=== PATIENT | male | born 1945 | race Hispanic/Latino ===

== ENCOUNTER → 2019-05-28 | Outpatient (CLI) | payer OTHER | END | disposition home or self-care (01) | LOC: SHCH 08:52 | PROVIDERS: ATTEND Internal Medicine Cardiovascular Disease | DX: R01.1 Cardiac murmur, unspecified (principal) | CPT/HCPCS: 93306 ==

== ENCOUNTER → 2019-12-14 | Outpatient (CLI) | payer OTHER ==
[~2019-12-14] MED LIST: IOHEXOL-350 50ML VIAL IV ONE
== END | disposition home or self-care (01) ==
LOC: RAH 10:29
PROVIDERS: ATTEND Internal Medicine Cardiovascular Disease
DX: J98.6 Disorders of diaphragm (principal); M47.814 Spondylosis without myelopathy or radiculopathy, thoracic region; I70.90 Unspecified atherosclerosis
CPT/HCPCS: 71270; Q9967

== ENCOUNTER → 2020-01-28 | Outpatient (CLI) | payer OTHER | END | disposition home or self-care (01) | LOC: RAH 10:31 | PROVIDERS: ATTEND Physical Medicine & Rehabilitation | DX: M47.816 Spondylosis without myelopathy or radiculopathy, lumbar region (principal); M48.062 Spinal stenosis, lumbar region with neurogenic claudication; M51.26 Other intervertebral disc displacement, lumbar region; M41.86 Other forms of scoliosis, lumbar region | CPT/HCPCS: 72148 ==

== ENCOUNTER → 2020-10-06 | Outpatient (CLI) | payer OTHER ==
[~2020-10-06] MED LIST changes: +IOHEXOL 350 MG/ML 100ML INFUS..BTL IV ONE
== END | disposition home or self-care (01) ==
LOC: RAH 07:47
PROVIDERS: ATTEND Internal Medicine Cardiovascular Disease
DX: I70.0 Atherosclerosis of aorta (principal); I70.293 Other atherosclerosis of native arteries of extremities, bilateral legs; I77.1 Stricture of artery
CPT/HCPCS: 75635; Q9967 ×2

== ENCOUNTER → 2021-06-26 | Outpatient (CLI) | payer MEDICARE ==
[~2021-06-26] VITALS: Ht 172.7 cm; Wt 70.8 kg
[~2021-06-26] MED LIST changes: -IOHEXOL 350 MG/ML 100ML INFUS..BTL IV ONE; -IOHEXOL-350 50ML VIAL IV ONE; +REGADENOSON 0.4 MG/5 ML PF SYG IVP SCH
== END | disposition home or self-care (01) ==
LOC: SHCH 08:12
PROVIDERS: ATTEND Internal Medicine Cardiovascular Disease
DX: R07.9 Chest pain, unspecified (principal)
CPT/HCPCS: 78452; 93017; A9500 ×2; J2785; 96374

== ENCOUNTER → 2021-10-01 | Outpatient (CLI) | payer MEDICARE | END | disposition home or self-care (01) | LOC: SHCH 07:31 | PROVIDERS: ATTEND Internal Medicine Cardiovascular Disease | DX: I08.0 Rheumatic disorders of both mitral and aortic valves (principal); I11.0 Hypertensive heart disease with heart failure; I50.21 Acute systolic (congestive) heart failure; I25.10 Atherosclerotic heart disease of native coronary artery without angina pectoris; I73.9 Peripheral vascular disease, unspecified; E11.9 Type 2 diabetes mellitus without complications; E03.9 Hypothyroidism, unspecified | CPT/HCPCS: 93306; 93975 ==

== ENCOUNTER → 2021-12-21 | Outpatient (CLI) | payer MEDICARE | END | disposition home or self-care (01) | LOC: RAH 13:13 | PROVIDERS: ATTEND Internal Medicine Cardiovascular Disease | DX: I08.0 Rheumatic disorders of both mitral and aortic valves (principal); I11.9 Hypertensive heart disease without heart failure; E11.9 Type 2 diabetes mellitus without complications; R53.81 Other malaise | CPT/HCPCS: 93306 ==

== ENCOUNTER → 2022-04-06 | Outpatient (CLI) | payer OTHER | END | disposition home or self-care (01) | LOC: SHCH 07:56 | PROVIDERS: ATTEND Internal Medicine Cardiovascular Disease | DX: I08.0 Rheumatic disorders of both mitral and aortic valves (principal); I11.9 Hypertensive heart disease without heart failure; E11.9 Type 2 diabetes mellitus without complications; E78.5 Hyperlipidemia, unspecified; Z95.1 Presence of aortocoronary bypass graft | CPT/HCPCS: 93306 ==

== ENCOUNTER → 2023-05-27 | Outpatient (CLI) | payer OTHER ==
[2023-05-27 15:25] LABS: BASOPHILS # (AUTO) 0.03 K/uL (0.00-0.20); BASOPHILS % (AUTO) 0.5 % (0.0-5.0); EOSINOPHILS % (AUTO) 1.7 % (0.0-8.0); IMMATURE GRANULOCYTE ABSOLUTE 0.01 K/uL (0-1); LYMPHOCYTES # (AUTO) 1.5 K/uL (1.0-4.8); MEAN CORPUSCULAR HEMOGLOBIN 33.3 pg (27.0-33.0); MEAN CORPUSCULAR HGB CONC 33.5 g/dL (32.0-36.0); MEAN CORPUSCULAR VOLUME 99.5 fL (79-99); MONOCYTES # (AUTO) 0.5 K/uL (0.1-1.0); MONOCYTES % (AUTO) 8.9 % (3.0-13.0); NEUTROPHILS # (AUTO) 3.8 K/uL (1.8-7.7); NEUTROPHILS % (AUTO) 63.7 % (40.0-77.0); PLATELET COUNT (AUTO) 159 K/uL (130-400); RED BLOOD CELL COUNT(AUTO) 3.72 MIL/uL (4.50-6.20)
[2023-05-27 16:26] LABS: ALBUMIN 4.2 g/dL (3.5-5.0); BILIRUBIN,TOTAL 0.6 mg/dL (0.2-1.0); CREATININE 1.1 mg/dL (0.5-1.5); POTASSIUM 3.5 mmol/L (3.5-5.1); TOTAL PROTEIN, SERUM 8.1 g/dL (6.0-8.3)
== END | disposition home or self-care (01) ==
LOC: LAB 11:37
PROVIDERS: ATTEND Internal Medicine Cardiovascular Disease
DX: I10 Essential (primary) hypertension (principal); I25.10 Atherosclerotic heart disease of native coronary artery without angina pectoris; E78.5 Hyperlipidemia, unspecified
CPT/HCPCS: 36415; 80053; 83880; 85025

== ENCOUNTER → 2023-07-08 | Outpatient (CLI) | payer OTHER | END | disposition home or self-care (01) | LOC: SHCH 07:58 | PROVIDERS: ATTEND Internal Medicine Cardiovascular Disease | DX: I08.0 Rheumatic disorders of both mitral and aortic valves (principal); E11.9 Type 2 diabetes mellitus without complications; I10 Essential (primary) hypertension; E78.5 Hyperlipidemia, unspecified | CPT/HCPCS: 93306 ==

== ENCOUNTER → 2023-07-15 | Outpatient (CLI) | payer OTHER ==
[2023-07-15] MEDS: REGADENOSON 0.4 MG/5 ML PF SYG IVP ONE (15:06)
== END | disposition home or self-care (01) ==
LOC: SHCH 07:34
PROVIDERS: ATTEND Internal Medicine Cardiovascular Disease
DX: I20.9 Angina pectoris, unspecified (principal)
CPT/HCPCS: 78452; 96374; 93017; J2785; A9500 ×2

== ENCOUNTER → 2023-10-12 | Outpatient (CLI) | payer OTHER ==
[2023-10-12 12:24] LABS: CREATININE 1.4 mg/dL (0.5-1.3); POTASSIUM 4.2 mmol/L (3.5-5.1)
== END | disposition home or self-care (01) ==
LOC: LAB 08:38
PROVIDERS: ATTEND Internal Medicine Cardiovascular Disease
DX: I10 Essential (primary) hypertension (principal)
CPT/HCPCS: 36415; 80048

== ENCOUNTER 2023-12-02 12:55 | Observation (INO) | payer OTHER ==
[~2023-12-02] VITALS: Ht 172.7 cm; Wt 61.7 kg
[~2023-12-02 12:55] MED LIST changes: +AMLO-257 PO; +ASCO500T10 PO; +ASPI-1443 PO; +ATOR20TA65 PO; +CHOLECALCIFEROL PO; +CLON0.1T PO; +CLOP75TA32 PO; +CYAN10007 IJ; +HYDR-3421 PO; +HYDR25TA67 PO; +ISOS60TA77 PO; +LEVO100T4 PO; +LEVO5TAB13 PO; +MIRT-22 PO; +OXYB5TAB20 PO; +PANT40TA54 PO; +RANO500T6 PO; -REGADENOSON 0.4 MG/5 ML PF SYG IVP SCH; +TELM40TA8 PO
[2023-12-02] MEDS ORDERED: NITROGLYCERIN 0.4 MG SL TAB SL PRN (14:00)
[2023-12-02 14:16] LABS: BASOPHILS # (AUTO) 0.02 K/uL (0.00-0.20); BASOPHILS % (AUTO) 0.5 % (0.0-5.0); EOSINOPHILS # (AUTO) 0.19 K/uL (0.00-0.70); EOSINOPHILS % (AUTO) 4.5 % (0.0-8.0); HEMATOCRIT 34.4 % (42-54); IMMATURE GRANULOCYTE ABSOLUTE 0.01 K/uL (0-1); LYMPHOCYTES # (AUTO) 1.1 K/uL (1.0-4.8); LYMPHOCYTES % (AUTO) 26.6 % (21.0-51.0); MEAN CORPUSCULAR HEMOGLOBIN 32.6 pg (27.0-33.0); MEAN CORPUSCULAR HGB CONC 33.1 g/dL (32.0-36.0); MEAN CORPUSCULAR VOLUME 98.3 fL (79-99); MONOCYTES # (AUTO) 0.4 K/uL (0.1-1.0); MONOCYTES % (AUTO) 8.7 % (3.0-13.0); NEUTROPHILS # (AUTO) 2.5 K/uL (1.8-7.7); NEUTROPHILS % (AUTO) 59.5 % (40.0-77.0); PLATELET COUNT (AUTO) 181 K/uL (130-400); RED CELL DISTRIBUTION WIDTH 14.2 % (11.0-15.5); WHITE BLOOD COUNT (AUTO) 4.3 K/uL (4.8-10.8)
[2023-12-02 14:22] LABS: INR 1.1 (0.85-1.15); PROTHROMBIN TIME 11.8 SEC (9.6-11.6)
[2023-12-02 14:23] LABS: PARTIAL THROMBOPLASTIN TIME 26.1 SEC (26.3-35.5)
[2023-12-02 14:59] LABS: CREATININE 1.5 mg/dL (0.5-1.3); POTASSIUM 3.8 mmol/L (3.5-5.1)
[2023-12-02 15:04] LABS: ALBUMIN 3.2 g/dL (3.5-5.0); BILIRUBIN,TOTAL 0.7 mg/dL (0.2-1.0); TOTAL PROTEIN, SERUM 6.8 g/dL (6.0-8.3)
[2023-12-02] MEDS ORDERED: ONDANSETRON 4MG INJ IVP PRN (16:00)
[2023-12-02] MEDS ORDERED: morPHINE 2 MG SYG IVP PRN (16:00)
[2023-12-02] MEDS ORDERED: acetaMINOPHEN 325 MG TAB PO PRN ×2 (16:00)
[2023-12-02] MEDS: HEParin 5,000 UNIT VIAL SQ SCH (16:33)
[2023-12-02 16:55] LABS: APPEARANCE,URINE CLEAR (CLEAR); BILIRUBIN,URINE NEGATIVE (NEGATIVE); COLOR,URINE LIGHT-YELLOW (YELLOW); GLUCOSE, URINE (UA) NEGATIVE (NEGATIVE); KETONES,URINE NEGATIVE (NEGATIVE); LEUKOCYTE ESTERASE ,URINE NEGATIVE Leu/uL (NEGATIVE); NITRATE,URINE NEGATIVE (NEGATIVE); OCCULT BLOOD,URINE NEGATIVE (NEGATIVE); PROTEIN,URINE NEGATIVE (NEGATIVE); UROBILINOGEN,URINE 0.2 mg/dL (0.2-1.0)
[2023-12-02 17:01] LABS: ADD UA MICROSCOPIC YES
[2023-12-02 17:02] LABS: MUCUS,URINE RARE LPF (None Seen); RBC,URINE 0-1 /HPF (0-1)
[2023-12-02 19:40] VITALS: BP 160/76; PULSE 63; RESP 18; TEMP 98.4
[2023-12-02 21:38] VITALS: O2SAT 98
[2023-12-02] MEDS ORDERED: GABA-529 PO (22:12)
[2023-12-02] MEDS ORDERED: FAMO20TA8 PO (22:12)
[2023-12-02] MEDS ORDERED: ISOS30TA92 PO (22:12)
[2023-12-02] MEDS: atorVAStatin 20 MG TABLET PO SCH (22:23)
[2023-12-03] VITALS (9 sets, daily range): BP systolic 130–184; BP diastolic 78–98; PULSE 57–78; RESP 18–20; TEMP 98.1–99; O2SAT 98
[2023-12-03 04:59] LABS: HEMATOCRIT 36.6 % (42-54); MEAN CORPUSCULAR HEMOGLOBIN 32.7 pg (27.0-33.0); MEAN CORPUSCULAR HGB CONC 32.8 g/dL (32.0-36.0); MEAN CORPUSCULAR VOLUME 99.7 fL (79-99); RED BLOOD CELL COUNT(AUTO) 3.67 MIL/uL (4.50-6.20); RED CELL DISTRIBUTION WIDTH 14.1 % (11.0-15.5); WHITE BLOOD COUNT (AUTO) 5.1 K/uL (4.8-10.8)
[2023-12-03 05:07] LABS: CREATININE 1.3 mg/dL (0.5-1.3); POTASSIUM 4.2 mmol/L (3.5-5.1)
[2023-12-03] MEDS: amLODIPine 5 MG TAB PO SCH (09:00)
[2023-12-03] MEDS: ASPIRIN 81 MG EC TAB PO SCH (09:00)
[2023-12-03] MEDS: REGADENOSON 0.4 MG/5 ML PF SYG IVP SCH (13:32)
[2023-12-03] MEDS: hydrOXYzine 25 MG TABLET PO ONE (16:15)
[2023-12-03] MEDS: hydrALAZine 25MG TABLET PO SCH (16:45)
[2023-12-03] MEDS: ISOSORBIDE MONO 30MG SR TAB PO ONE (18:42)
[2023-12-03] MEDS: doCUSate SODIUM 100 MG CAP PO ONE ×2 (19:37→19:38)
[2023-12-03] MEDS: RANOLAZINE 500 MG TAB.SR.12H PO SCH (20:51)
[2023-12-03] MEDS: hydrOXYzine 25 MG TABLET PO PRN (20:52)
[2023-12-03] MEDS: hydrALAZine 25MG TABLET PO ONE (20:52)
[2023-12-04] VITALS: BP 133/67; PULSE 66; RESP 20; TEMP 98.9
[2023-12-04 04:00] VITALS: BP 134/70; PULSE 65; RESP 21; TEMP 98
[2023-12-04 04:27] LABS: HEMATOCRIT 35.8 % (42-54); MEAN CORPUSCULAR HEMOGLOBIN 32.2 pg (27.0-33.0); MEAN CORPUSCULAR VOLUME 97.8 fL (79-99); RED BLOOD CELL COUNT(AUTO) 3.66 MIL/uL (4.50-6.20); RED CELL DISTRIBUTION WIDTH 13.8 % (11.0-15.5); WHITE BLOOD COUNT (AUTO) 5.4 K/uL (4.8-10.8)
[2023-12-04 04:51] LABS: CREATININE 1.4 mg/dL (0.5-1.3); POTASSIUM 3.9 mmol/L (3.5-5.1)
[2023-12-04 07:00] VITALS: BP 152/72; PULSE 63; RESP 18; TEMP 98.2
[2023-12-04] MEDS ORDERED: ISOSORBIDE MONO 30MG SR TAB PO SCH (09:00)
[2023-12-04] MEDS ORDERED: ASPIRIN 81 MG EC TAB PO SCH (09:00)
[2023-12-04] MEDS ORDERED: Telmisartan 40 MG PO SCH (09:00)
[2023-12-04] MEDS: CLOPIDOGREL 75MG TAB PO SCH (10:22)
[2023-12-04] MEDS: PANTOPRAZOLE 40 MG TAB DR PO SCH (10:22)
[2023-12-04] MEDS: doCUSate SODIUM 100 MG CAP PO SCH (10:22)
[2023-12-04] MEDS: ISOSORBIDE MONO 30MG SR TAB PO SCH (10:23)
[2023-12-04] MEDS: atorVAStatin 20 MG TABLET PO SCH (10:24)
[2023-12-04 11:00] VITALS: BP 112/62; PULSE 83; RESP 18; TEMP 97.9
[2023-12-04 16:00] VITALS: BP 124/76; PULSE 87; RESP 18; TEMP 98.1
== END 2023-12-04 18:00 | disposition home or self-care (01) ==
LOC: EDH 12:55 → EDHIP 14:27 → 2DH 18:44
PROVIDERS: ADMIT Family Medicine; ATTEND Family Medicine
DX: I20.0 Unstable angina (principal); I12.9 Hypertensive chronic kidney disease with stage 1 through stage 4 chronic kidney disease, or unspecified chronic kidney disease; E11.22 Type 2 diabetes mellitus with diabetic chronic kidney disease; N18.30 Chronic kidney disease, stage 3 unspecified; I70.1 Atherosclerosis of renal artery; E03.9 Hypothyroidism, unspecified; E11.51 Type 2 diabetes mellitus with diabetic peripheral angiopathy without gangrene; E78.5 Hyperlipidemia, unspecified; S20.219A Contusion of unspecified front wall of thorax, initial encounter; I35.0 Nonrheumatic aortic (valve) stenosis; Z95.5 Presence of coronary angioplasty implant and graft; X58.XXXA Exposure to other specified factors, initial encounter; Y93.89 Activity, other specified; Y92.89 Other specified places as the place of occurrence of the external cause; Y99.8 Other external cause status; Z79.899 Other long term (current) drug therapy; Z98.890 Other specified postprocedural states
CPT/HCPCS: 96372 ×3; 82550; 83874; 84484 ×3; 80053; 85025; 85378; 85610; 85730; 82948 ×7; 84439; 84481; 81001; 36415 ×3; 71045; 93005; 80048 ×2; 85027 ×2; 93017; 78452; G0378 ×49; J1644 ×4; J2785; A9500 ×2

== ENCOUNTER → 2024-02-21 | Outpatient (CLI) | payer OTHER ==
[~2024-02-21] MED LIST changes: -AMLO-257 PO; -CHOLECALCIFEROL PO; +FAMO20TA8 PO; +GABA-529 PO; +ISOS30TA92 PO; -ISOS60TA77 PO; -LEVO5TAB13 PO
[2024-02-21 12:15] LABS: BASOPHILS # (AUTO) 0.02 K/uL (0.00-0.20); BASOPHILS % (AUTO) 0.3 % (0.0-5.0); EOSINOPHILS # (AUTO) 0.14 K/uL (0.00-0.70); EOSINOPHILS % (AUTO) 2.1 % (0.0-8.0); HEMATOCRIT 38.8 % (42-54); IMMATURE GRANULOCYTE ABSOLUTE 0.03 K/uL (0-1); LYMPHOCYTES # (AUTO) 1.1 K/uL (1.0-4.8); LYMPHOCYTES % (AUTO) 16.2 % (21.0-51.0); MEAN CORPUSCULAR HEMOGLOBIN 32.2 pg (27.0-33.0); MEAN CORPUSCULAR VOLUME 97.5 fL (79-99); MONOCYTES # (AUTO) 0.6 K/uL (0.1-1.0); MONOCYTES % (AUTO) 8.6 % (3.0-13.0); NEUTROPHILS # (AUTO) 4.9 K/uL (1.8-7.7); NEUTROPHILS % (AUTO) 72.4 % (40.0-77.0); PLATELET COUNT (AUTO) 163 K/uL (130-400); RED BLOOD CELL COUNT(AUTO) 3.98 MIL/uL (4.50-6.20); RED CELL DISTRIBUTION WIDTH 13.4 % (11.0-15.5); WHITE BLOOD COUNT (AUTO) 6.8 K/uL (4.8-10.8)
[2024-02-21 12:23] LABS: INR 1.08 (0.85-1.15); PROTHROMBIN TIME 11.6 SEC (9.6-11.6)
[2024-02-21 12:24] LABS: CREATININE 1.2 mg/dL (0.5-1.3)
[2024-02-21 12:25] LABS: PARTIAL THROMBOPLASTIN TIME 27.1 SEC (26.3-35.5)
== END | disposition home or self-care (01) ==
LOC: LAB 09:41
PROVIDERS: ATTEND Internal Medicine Cardiovascular Disease
DX: I10 Essential (primary) hypertension (principal); I25.10 Atherosclerotic heart disease of native coronary artery without angina pectoris; I73.9 Peripheral vascular disease, unspecified; R07.89 Other chest pain
CPT/HCPCS: 36415; 80048; 85025; 85610; 85730

== ENCOUNTER → 2024-04-19 | Outpatient (CLI) | payer OTHER ==
--- NOTE | 2024-04-23 10:54 | HMCSR ---
APPROVED REPORT EXAM: Two-dimensional and M-mode echocardiogram with Doppler and color Doppler. INDICATION ICD: I10.0 Essential (primary) Hypertension 2D Dimensions RVDd3.8 cmLVEF(%)61.0 (>50%)LVED Vol(simp.)99.0 mL IVSd1.3 (0.7-1.1cm)FS(%)32 %LVES Vol(simp.)41.0 mL LVDd3.7 (3.8-5.6cm)Ao Root(2D)3.9 (2.0-3.7cm)LVEF(%, simp.)58 % PWd1.4 (0.7-1.1cm)LVOT diam2.2 (1.8-2.4cm)LA ESV INDEX (BP)28.47 mL/m2 LVDs2.5 (2.5-4.0cm) Aortic Valve AoV Vmax3.4 m/Ady Peak GR47.3 mmHgLVOT Vmax0.6 m/s AoV VTI0.6 mAo Mean GR29.1 mmHgLVOT VTI0.14 m ELDA (VMAX)0.8 cm2Al P1/2T473 msAVA (VTI) 0.8 cm2 Mitral Valve MV E Vmax79.6 cm/sDECEL Tayr155 msMV Peak GR9 mmHg MV A Rgih995.6 cm/sP 1/2 T124 msMV Mean GR4 mmHg E/A ratio0.6MVA (PHT)1.8 cm2MVA (VTI)1.7 cm2 MR Max PG71 mmHg TDI E/E' Dssoxc82.3E/E' Lateral9.8 Pulmonary Valve PV Vmax1.0 m/sPV VTI0.16 mPV Mean GR2 mmHg PV Peak GR4.1 mmHg Tricuspid Valve TR Vmax2.4 m/sRAP (EST) 8 qkJuKECR80.3 mmHg TR Peak GR22.3 mmHg Left Ventricle Left ventricular cavity size is normal. There is normal LV segmental wall motion. There is mild to mo derate concentric left ventricular hypertrophy. LVEF is 55-60%. No left ventricle thrombus noted on t his study. Grade 1 diastolic dysfunction Right Ventricle The right ventricle is normal size. Cannot assess right ventricular systolic function. Atria The left atrium size is normal. Right atrium is not well visualized. Aortic Valve The aortic valve is calcified and displays decreased opening. Mild to moderate aortic regurgitation. Severe aortic stenosis with a calculated aortic valve area is 0.8 cm2 with maximum pressure gradient of 47.3 mmHg and mean pressure gradient of 29.1 mmHg. Mitral Valve Mitral valve leaflets are mildly calcified. Mitral annular calcification is mild to moderate. Mitral regurgitation is trace to mild. Calculated mitral valve area is 1.7 cm2 with maximum pressure gradien t of 9.3 mmHg and mean pressure gradient of 3.6 mmHg. Tricuspid Valve The tricuspid valve leaflets appear normal. There is trace to mild tricuspid regurgitation. Right ramon tricular systolic pressure is estimated at 30 mmHg. Pulmonic Valve Pulmonic valve is not well visualized. Great Vessels Aortic root is mildly dilated. IVC is not well visualized. Pericardium No pericardial effusion. Other Information Quality : Technically Limited Technically limited study due to body habitus. Conclusion Left ventricular cavity size is normal. There is mild to moderate concentric left ventricular hypertrophy. LVEF is 55-60%. Grade 1 diastolic dysfunction The right ventricle is normal size. The left atrium size is normal. The aortic valve is calcified and displays decreased opening. Mild to moderate aortic regurgitation. Severe aortic stenosis with a calculated aortic valve area is 0.8 cm2 with maximum pressure gradient of 47.3 mmHg and mean pressure gradient of 29.1 mmHg. Mitral valve leaflets are mildly calcified. Mitral annular calcification is mild to moderate. Mitral regurgitation is trace to mild. Calculated mitral valve area is 1.7 cm2 with maximum pressure gradient of 9.3 mmHg and mean pressure gradient of 3.6 mmHg. There is trace to mild tricuspid regurgitation. Right ventricular systolic pressure is estimated at 30 mmHg. Aortic root is mildly dilated. IVC is not well visualized. No pericardial effusion.
== END | disposition home or self-care (01) ==
LOC: SHCH 14:55
PROVIDERS: ATTEND Internal Medicine Cardiovascular Disease
DX: I08.3 Combined rheumatic disorders of mitral, aortic and tricuspid valves (principal); I11.9 Hypertensive heart disease without heart failure
CPT/HCPCS: 93306

== ENCOUNTER → 2025-01-30 | Outpatient (CLI) | payer OTHER ==
[~2025-01-30] MED LIST changes: +IOHEXOL 350 MG/ML 100ML INFUS..BTL IV ONE; +IOHEXOL-350 50ML VIAL IV ONE
--- NOTE | 2025-01-31 15:52 | HMCIMG ---
EXAM: CT Abdomen and angiography with IV contrast, CLINICAL HISTORY: Peripheral vascular disease TECHNIQUE: Axial computed tomography images of the abdomen and pelvis were obtained. Multiplanar reformations were reviewed. CONTRAST: With intravenous contrast,152 ml COMPARISON: None provided. FINDINGS: LUNG BASES: The lung bases show basal reticulations No pleural effusion is seen. LIVER: Unremarkable. GALLBLADDER AND BILE DUCTS: The gallbladder appears within normal limits. No radiopaque gallstones identified. PANCREAS: Unremarkable. SPLEEN: Unremarkable. ADRENAL GLANDS: Unremarkable. KIDNEYS, URETERS, AND BLADDER: There is scarring noted in the right kidney. No hydronephrosis. A linear radiodensity is seen along the course of the left renal artery, however clinical details are not provided. The urinary bladder appears thick-walled. STOMACH AND BOWEL: Unremarkable appearance of the stomach and bowel. No evidence of bowel obstruction or inflammation. Large amount of stool in the colon, consistent with constipation.. APPENDIX: Normal appendix. PERITONEUM: No free fluid. No free air. LYMPH NODES: No lymphadenopathy is evident. VASCULATURE: Diffuse atheromatous wall calcification is seen in the abdominal aorta. The abdominal aorta appears tortuous with a convexity towards the right side. Atheromatous calcifications extend into the bilateral common iliac arteries and into the bilateral external iliac arteries. Diffuse atheromatous calcifications further extend into the bilateral common femoral arteries, superficial femoral arteries and profunda femoris arteries. Similar calcified atheromatous changes are seen involving the popliteal arteries and further distally in the anterior tibial, posterior tibial and peroneal arteries. There is significant luminal narrowing in the distal arteries of the legs with paucity of contrast opacification, suggesting peripheral vascular disease changes. BONES: No aggressive appearing osseous lesion. No acute osseous pathology is evident. IMPRESSION: Diffuse atheromatous calcification involving the abdominal aorta extending into the iliac, femoral, popliteal and tibial arterial branches with significant luminal narrowing in the distal arteries and associated paucity of contrast opacification, consistent with moderate peripheral vascular disease. No abdominal aortic aneurysm or dissection. Tortuous abdominal aorta with rightward convexity. No bowel obstruction or inflammation. Constipation. Normal appendix. Thick-walled urinary bladder, likely representing cystitis. Right renal scarring. No hydronephrosis. /[place]
== END | disposition home or self-care (01) ==
LOC: RAH 01-04 08:29
PROVIDERS: ATTEND Internal Medicine Cardiovascular Disease
DX: I73.9 Peripheral vascular disease, unspecified (principal); I70.0 Atherosclerosis of aorta; K59.00 Constipation, unspecified; N28.89 Other specified disorders of kidney and ureter
CPT/HCPCS: 75635; Q9967 ×2